=== PATIENT | female | born 1975 | race Caucasian/White ===

== ENCOUNTER 2025-05-02 11:18 | Inpatient (IN) ==
[2025-05-02] MEDS: LACTATED RINGERS 1,000 ML IV ONE ×2 (12:31→12:52)
[2025-05-02] MEDS: 0.9 % SODIUM CHLORIDE 1,000 ML IV ONE (12:32)
[2025-05-02] MEDS: KETOROLAC 30 MG/ML VIAL IV ONE (12:37)
[2025-05-02] MEDS: ONDANSETRON 4 MG/2 ML VIAL IV ONE (12:38)
[2025-05-02 12:58] LABS: Basophils # (Auto) 0.02 K/mcL (0.00-0.30); Basophils % (Auto) 0.3 % (0.0-2.0); Eosinophils # (Auto) 0 K/mcL (0.00-0.70); Eosinophils % (Auto) 0 % (0.0-7.0); Hematocrit 36.4 % (34.1-44.9); Hemoglobin 12.1 g/dL (11.2-15.7); Lymphocytes # (Auto) 0.45 K/mcL (1.50-4.80); Lymphocytes % (Auto) 6.5 % (15.5-49.0); Mean Corpuscular HGB Conc 33.2 g/dL (31.0-36.0); Monocytes # (Auto) 0.45 K/mcL (0.10-0.90); Monocytes % (Auto) 6.5 % (1.0-12.0); Neutrophils % (Auto) 86.6 % (38.0-78.0); Platelet Count 113 K/mcL (140-440); RBC 3.87 M/mcL (3.59-5.38); WBC 6.9 K/mcL (4.5-11.0)
[2025-05-02 13:11] LABS: Bacteria,Urine Many /hpf (0); Bilirubin,Urine NEGATIVE (Negative); Color,Urine YELLOW; Glucose,Urine (UA) NEGATIVE (Negative); Ketones,Urine TRACE mg/dL (Negative); Leukocyte Esterase,Urine NEGATIVE /uL (Negative); PH,Urine 7.5 (5.0-9.0); Protein,Urine TRACE mg/dL (Negative); Specific Gravity,Urine 1.020 (1.000-1.035); Urobilinogen,Urine 0.2 mg/dL
[2025-05-02 13:19] LABS: ALT/SGPT 104 U/L (<40); AST/SGOT 72 U/L (<32); Albumin 3.9 gm/dL (3.2-5.2); Albumin/Globulin Ratio 1.6 (1.0-2.3); Alkaline Phosphatase 85 U/L (39-117); Anion Gap 9.0 (8.0-16.0); Bilirubin,Total 1.0 mg/dL (0.1-1.0); Blood Urea Nitrogen 8 mg/dL (6-20); Calcium 9.1 mg/dL (8.6-10.4); Carbon Dioxide 24 mmol/L (22-30); Chloride 105 mmol/L (96-108); Globulin 2.4 gm/dL (2.2-3.7); Glucose 90 mg/dL (70-105); Potassium 3.7 mmol/L (3.3-5.1); Sodium 138 mmol/L (133-145)
[2025-05-02] MEDS: ACETAMINOPHEN 1,000 MG/100 ML BAG IV ONE (14:40)
[2025-05-02] MEDS ORDERED: KETOROLAC 30 MG/ML VIAL IV PRN (17:55)
[2025-05-02] MEDS ORDERED: IPRATROPIUM/ALBUTEROL 3 ML AMPUL.NEB NEB PRN (17:55)
[2025-05-02] MEDS: 0.9 % SODIUM CHLORIDE 1,000 ML IV SCH (18:17)
[2025-05-02 18:35] LABS: Alcohol,Blood < 0.010 g/dL (<0.010)
[2025-05-02] MEDS: cefTRIAXone 2 GM in DEXTROSE 5% IN WATER 50 ML IV SCH (19:06)
[2025-05-02 20:06] LABS: Hepatitis A Antibody IgM Non-Reactive (Non-Reactive); Hepatitis B Surface Antigen Negative (Negative)
[2025-05-02] MEDS: DOCUSATE SODIUM 100 MG CAPSULE PO SCH (20:33)
[2025-05-02] MEDS: SENNOSIDES 1 TABLET PO SCH (20:33)
[2025-05-02] MEDS: 0.9 % SODIUM CHLORIDE 10 ML SYRINGE IV SCH (20:41)
[2025-05-02] MEDS: ONDANSETRON 4 MG/2 ML VIAL IV PRN (23:18)
[2025-05-03] MEDS: ACETAMINOPHEN 325 MG TABLET PO PRN (01:32)
[2025-05-03 06:09] LABS: Basophils # (Auto) 0.01 K/mcL (0.00-0.30); Basophils % (Auto) 0.2 % (0.0-2.0); Eosinophils # (Auto) 0.05 K/mcL (0.00-0.70); Eosinophils % (Auto) 0.9 % (0.0-7.0); Hematocrit 31.2 % (34.1-44.9); Hemoglobin 10.2 g/dL (11.2-15.7); Lymphocytes # (Auto) 0.90 K/mcL (1.50-4.80); Lymphocytes % (Auto) 16.9 % (15.5-49.0); Mean Corpuscular HGB Conc 32.7 g/dL (31.0-36.0); Monocytes # (Auto) 0.45 K/mcL (0.10-0.90); Monocytes % (Auto) 8.4 % (1.0-12.0); Neutrophils % (Auto) 73.4 % (38.0-78.0); Platelet Count 97 K/mcL (140-440); RBC 3.25 M/mcL (3.59-5.38); WBC 5.3 K/mcL (4.5-11.0)
[2025-05-03 06:34] LABS: ALT/SGPT 96 U/L (<40); AST/SGOT 65 U/L (<32); Albumin 3.3 gm/dL (3.2-5.2); Albumin/Globulin Ratio 1.7 (1.0-2.3); Alkaline Phosphatase 93 U/L (39-117); Anion Gap 7.0 (8.0-16.0); Bilirubin,Total 0.5 mg/dL (0.1-1.0); Blood Urea Nitrogen 7 mg/dL (6-20); Calcium 8.1 mg/dL (8.6-10.4); Carbon Dioxide 24 mmol/L (22-30); Chloride 110 mmol/L (96-108); Globulin 2.0 gm/dL (2.2-3.7); Glucose 98 mg/dL (70-105); Potassium 3.7 mmol/L (3.3-5.1); Sodium 141 mmol/L (133-145)
[2025-05-03] MEDS: ENOXAPARIN 40 MG/0.4 ML SYRINGE SQ SCH (08:10)
[2025-05-03] MEDS: ACETAMINOPHEN 650 MG/65 ML BAG IV PRN (12:39)
[2025-05-03] MEDS: IBUPROFEN 800 MG TABLET PO PRN (17:38)
[2025-05-04] MEDS: ACETAMINOPHEN 1,000 MG/100 ML BAG IV PRN (02:12)
[2025-05-04 06:24] LABS: Basophils # (Auto) 0.02 K/mcL (0.00-0.30); Basophils % (Auto) 0.5 % (0.0-2.0); Eosinophils # (Auto) 0.07 K/mcL (0.00-0.70); Eosinophils % (Auto) 1.7 % (0.0-7.0); Hematocrit 30.6 % (34.1-44.9); Hemoglobin 9.9 g/dL (11.2-15.7); Lymphocytes # (Auto) 1.10 K/mcL (1.50-4.80); Lymphocytes % (Auto) 27.4 % (15.5-49.0); Mean Corpuscular HGB Conc 32.4 g/dL (31.0-36.0); Monocytes # (Auto) 0.34 K/mcL (0.10-0.90); Monocytes % (Auto) 8.5 % (1.0-12.0); Neutrophils % (Auto) 61.7 % (38.0-78.0); Platelet Count 89 K/mcL (140-440); RBC 3.14 M/mcL (3.59-5.38); WBC 4.0 K/mcL (4.5-11.0)
[2025-05-04 06:45] LABS: ALT/SGPT 160 U/L (<40); AST/SGOT 128 U/L (<32); Albumin 3.2 gm/dL (3.2-5.2); Albumin/Globulin Ratio 1.5 (1.0-2.3); Alkaline Phosphatase 123 U/L (39-117); Anion Gap 9.0 (8.0-16.0); Bilirubin,Total 0.3 mg/dL (0.1-1.0); Blood Urea Nitrogen 5 mg/dL (6-20); Calcium 8.2 mg/dL (8.6-10.4); Carbon Dioxide 25 mmol/L (22-30); Chloride 108 mmol/L (96-108); Globulin 2.2 gm/dL (2.2-3.7); Glucose 136 mg/dL (70-105); Potassium 2.9 mmol/L (3.3-5.1); Sodium 142 mmol/L (133-145)
[2025-05-04] MEDS: LEVOTHYROXINE 100 MCG TABLET PO SCH (08:05)
[2025-05-04] MEDS ORDERED: POTASSIUM CHLORIDE 20 MEQ in DEXTROSE 5% IN WATER 250 ML IV ONE (08:58)
[2025-05-04] MEDS: MECLIZINE 25 MG TABLET PO PRN (10:43)
[2025-05-04] MEDS: LIOTHYRONINE 5 MCG TABLET PO SCH (10:46)
[2025-05-04] MEDS: NACL 0.9% W/KCL 20MEQ 1,000 ML IV SCH (11:30)
[2025-05-04] MEDS: POTASSIUM CHLORIDE 10 MEQ/100 ML BAG IV SCH (11:52)
[2025-05-04] MEDS: POTASSIUM CHLORIDE 20 MEQ TABLET PO SCH (17:53)
== END 2025-05-04 19:08 | disposition left against medical advice (07) | DRG 690 ==
LOC: MEDSUR 11:18 → ED 11:18 → MEDSUR 17:48
PROVIDERS: ADMIT Internal Medicine; ATTEND Internal Medicine